=== PATIENT | female | born 1990 | race African-American/Black ===

== ENCOUNTER 2017-05-25 11:35 | Emergency (ER) | payer MEDICAID ==
[2016-02-22 08:24] VITALS: BMI 30.8
[~2017-05-25 11:35] MED LIST: ADIPEX-P37.5 M1 PO; GILDESS FE 1.51 EACH PO; HYDROCODONE-APA1 TAB PO
[2017-05-25 12:26] LABS: BASOPHILS 0.6 % (0-2); EOSINOPHILS 1.9 % (0-7); HEMATOCRIT 38.4 % (36.0-48.0); HEMOGLOBIN 12.4 g/dL (12-16); IMMATURE GRANULOCYTES 0.2 % (0-5); LYMPHOCYTES 30.1 % (15-50); MCH 30.3 pg (26.0-34.0); MCHC 32.3 g/dL (31.0-37.0); MCV 93.9 fL (80.0-100.0); MEAN PLATELET VOLUME 9.9 fL (7.4-10.4); MONOCYTES 11.3 % (2-11); NEUTROPHILS 55.9 % (40-80); PLATELET COUNT 278 10x3/uL (130-400); RBC 4.09 10x6/uL (4.00-5.40); RDW 13.4 % (11.5-14.5); WBC 4.7 10x3/uL (4.8-10.8)
[2017-05-25 12:47] LABS: APPEARANCE CLEAR (CLEAR); BILIRUBIN NEGATIVE (NEGATIVE); COLOR YELLOW (YELLOW); GLUCOSE NEGATIVE (NEGATIVE); KETONE NEGATIVE (NEGATIVE); LEUKOCYTE ESTERASE NEGATIVE (NEGATIVE); NITRITE NEGATIVE (NEGATIVE); PROTEIN NEGATIVE (NEGATIVE); SPECIFIC GRAVITY 1.015 (1.005-1.020)
== END 2017-05-25 14:51 | disposition home or self-care (01) ==
LOC: D.ER 11:35
PROVIDERS: Physician Assistant
DX: O26.891 Other specified pregnancy related conditions, first trimester (principal); Z3A.08 8 weeks gestation of pregnancy; S30.1XXA Contusion of abdominal wall, initial encounter; W07.XXXA Fall from chair, initial encounter; Y93.89 Activity, other specified; Y92.9 Unspecified place or not applicable; R10.9 Unspecified abdominal pain

== ENCOUNTER → 2017-10-08 10:12 | Outpatient (CLI) | payer MEDICAID ==
[2016-02-22 08:24] VITALS: BMI 30.8
[2017-10-08 11:50] LABS: APPEARANCE HAZY (CLEAR); BILIRUBIN NEGATIVE (NEGATIVE); COLOR YELLOW (YELLOW); GLUCOSE NEGATIVE (NEGATIVE); KETONE NEGATIVE (NEGATIVE); NITRITE NEGATIVE (NEGATIVE); PROTEIN NEGATIVE (NEGATIVE); SPECIFIC GRAVITY 1.015 (1.005-1.020)
== END | disposition home or self-care (01) ==
LOC: D.LDO 10:12
PROVIDERS: Obstetrics & Gynecology
DX: O26.892 Other specified pregnancy related conditions, second trimester (principal); Z3A.26 26 weeks gestation of pregnancy

== ENCOUNTER → 2017-12-11 10:25 | Outpatient (CLI) | payer MEDICAID ==
[2016-02-22 08:24] VITALS: BMI 30.8
== END | disposition home or self-care (01) ==
LOC: D.LDO 10:25
DX: O26.893 Other specified pregnancy related conditions, third trimester (principal); Z3A.36 36 weeks gestation of pregnancy

== ENCOUNTER → 2017-12-14 15:19 | Outpatient (CLI) | payer MEDICAID ==
[2016-02-22 08:24] VITALS: BMI 30.8
[2017-12-14 16:39] LABS: APPEARANCE CLEAR (CLEAR); BILIRUBIN NEGATIVE (NEGATIVE); COLOR YELLOW (YELLOW); GLUCOSE NEGATIVE (NEGATIVE); KETONE NEGATIVE (NEGATIVE); NITRITE NEGATIVE (NEGATIVE); PROTEIN NEGATIVE (NEGATIVE); UROBILINOGEN NORMAL (NORMAL)
== END | disposition home or self-care (01) ==
LOC: D.LDO 15:19
PROVIDERS: Obstetrics & Gynecology
DX: O21.9 Vomiting of pregnancy, unspecified (principal); Z3A.36 36 weeks gestation of pregnancy

== ENCOUNTER → 2017-12-16 08:27 | Outpatient (CLI) | payer MEDICAID ==
[2016-02-22 08:24] VITALS: BMI 30.8
[~2017-12-16 08:27] MED LIST changes: +HYDROCODON-ACE1 EAC7 PO; +IBUPROFEN600 MG PO; +NORMODYNE / TR100 MG PO; +PRENATAL COMPLE1 TAB PO
[2017-12-16 09:22] LABS: APPEARANCE CLEAR (CLEAR); BILIRUBIN NEGATIVE (NEGATIVE); COLOR YELLOW (YELLOW); GLUCOSE NEGATIVE (NEGATIVE); KETONE NEGATIVE (NEGATIVE); NITRITE NEGATIVE (NEGATIVE); PROTEIN NEGATIVE (NEGATIVE); SPECIFIC GRAVITY 1.005 (1.005-1.020); UROBILINOGEN NORMAL (NORMAL)
== END | disposition home or self-care (01) ==
LOC: D.LDO 08:27
PROVIDERS: Obstetrics & Gynecology
DX: O26.893 Other specified pregnancy related conditions, third trimester (principal); Z3A.37 37 weeks gestation of pregnancy

== ENCOUNTER 2017-12-24 19:37 | Outpatient (CLI) | payer MEDICAID ==
[2016-02-22 08:24] VITALS: BMI 30.8
[~2017-12-24 19:37] MED LIST changes: -HYDROCODON-ACE1 EAC7 PO; -IBUPROFEN600 MG PO; -NORMODYNE / TR100 MG PO; -PRENATAL COMPLE1 TAB PO
== END 2017-12-24 20:26 ==
LOC: D.LDO 19:37
DX: O26.893 Other specified pregnancy related conditions, third trimester (principal); Z3A.37 37 weeks gestation of pregnancy; M79.652 Pain in left thigh; M79.651 Pain in right thigh

== ENCOUNTER 2017-12-28 15:58 | Inpatient (IN) | payer MEDICAID ==
[~2017-12-28] VITALS: Ht 162.6 cm; Wt 103.4 kg
--- NOTE | ~2017-12-28 | DS ---
PATIENT:GILDA HAMMOND :88 MEDICAL RECORD: [id number] DISCHARGE SUMMARY ADMISSION DATE: 12/28/17 DISCHARGE DATE: 12/31/17 The patient was admitted on 12/28/2017. HOSPITAL COURSE: A 27-year-old at 38 weeks and 3 days, admitted from the office to L&D for elevated blood pressures in the severe range with suspected severe preeclampsia at 38 weeks and 3 days. The patient was noted to be A positive, group B strep negative, and rubella immune. PAST MEDICAL HISTORY: Significant for history of umbilical hernia, history of low-grade NIKKIE, history of a single umbilical artery and the current . The patient denied any past surgical history. The patient denies any allergies. The patient reported no significant family history. SOCIAL HISTORY: Significant for alcohol use; however, not during . On initial exam, blood pressures were noted to be above 165 systolic. The patient was otherwise afebrile with a regular rate and rhythm. PHYSICAL EXAMINATION: LUNGS: Clear. CARDIOVASCULAR: Revealed a regular rate and rhythm. The uterus was appropriately sized and nontender. EXTREMITIES: Lower extremities are free of Homans sign, erythema, or significant swelling. LABS: Revealed a hemoglobin of 10.1 and platelet count of 239. Normal liver enzymes and creatinine. ASSESSMENT AND PLAN: 1. Term intrauterine with gestational hypertension/suspected severe preeclampsia. 2. Single umbilical artery. 3. Umbilical hernia. 4. History of low-grade NIKKIE. Plan for induction of labor upon initial admission, with blood pressure in the severe range and with a category 1 tracing at admission. The patient was started on Pitocin and made rapid progression. Rupture of membranes was performed with clear fluid. The patient progressed to the second stage of labor, where a vacuum-assisted vaginal delivery was performed due to bradycardia. The patient had a second degree laceration that was repaired. Delivery note is as on the chart. The patient did well overnight on day #0, with pressures normalizing. However, during the course of the night, blood pressure still became elevated and labile and the patient was started on magnesium sulfate for seizure prophylaxis. Labetalol 100 mg b.i.d. p.o., was started and on the morning of day #1, the patient was doing well with improving blood pressures on labetalol. Uterus is infraumbilical and nontender. Hemoglobin was found to be stable. On the morning of day #2, blood pressures were stable on labetalol. Uterus was infraumbilical and nontender. Vital signs were otherwise stable and the patient was afebrile. Minimal lochia. The patient was discharged home on day #2 with instructions to DISCHARGE SUMMARY REPORT [id number] GILDA HAMMOND follow up in 3 days for blood pressure monitoring. TRANSINT:[id number] Voice Confirmation ID: [id number] DOCUMENT ID: [id number] HOANG WHITEHEAD MD at 1018 CC: [id number] DICTATION DATE: 01/24/18 0612 TERMITE HELPER: 01/24/18 1414 DIS IN 12/31/17 [id number] [place] [address]
[2017-12-28 17:47] LABS: HEMATOCRIT 31.8 % (36.0-48.0); HEMOGLOBIN 10.1 g/dL (12-16); MCH 29.6 pg (26.0-34.0); MCHC 31.8 g/dL (31.0-37.0); MCV 93.3 fL (80.0-100.0); MEAN PLATELET VOLUME 11.9 fL (7.4-10.4); RBC 3.41 10x6/uL (4.00-5.40); WBC 5.5 10x3/uL (4.8-10.8)
[2017-12-28 17:55] LABS: ALT (SGPT) 16 U/L (10-68); CALC OSMOLALITY 270 mosm/kg (275-300); CALCIUM 8.8 mg/dL (8.5-10.1); CARBON DIOXIDE 23.1 mmol/L (21.0-32.0); CHLORIDE - SERUM 103 mmol/L (98-107); CREATININE - SERUM 0.5 mg/dL (0.6-1.3); GLUCOSE 88 mg/dL (74-106); POTASSIUM - SERUM 3.6 mmol/L (3.5-5.1); SODIUM 137 mmol/L (136-145); UREA NITROGEN 6 mg/dL (7-18); URIC ACID 4.5 mg/dL (2.6-7.2); eGFR NON AFRICAN AMERICAN > 90 mL/min (90-120)
[2017-12-28 18:42] VITALS: BP 130/82; Ht 162.6 cm; Wt 103.4 kg
[2017-12-28] MEDS ORDERED: PRENATAL COMPLE1 TAB PO (18:42)
[2017-12-29 07:54] LABS: HEMATOCRIT 30.9 % (36.0-48.0); HEMOGLOBIN 9.7 g/dL (12-16); MCH 29.1 pg (26.0-34.0); MCHC 31.4 g/dL (31.0-37.0); MCV 92.8 fL (80.0-100.0); MEAN PLATELET VOLUME 11.9 fL (7.4-10.4); RBC 3.33 10x6/uL (4.00-5.40); WBC 6.1 10x3/uL (4.8-10.8)
[2017-12-29 19:19] LABS: HEMATOCRIT 29.4 % (36.0-48.0); HEMOGLOBIN 9.4 g/dL (12-16); MCH 29.3 pg (26.0-34.0); MCV 91.6 fL (80.0-100.0); MEAN PLATELET VOLUME 11.7 fL (7.4-10.4); RBC 3.21 10x6/uL (4.00-5.40); RDW 13.1 % (11.5-14.5)
[2017-12-29 19:21] LABS: WBC 11.1 10x3/uL (4.8-10.8)
[2017-12-30 06:15] LABS: RAPID PLASMA REAGIN Non Reactive (Non Reactive)
[2017-12-30 09:07] LABS: BASOPHILS 0.1 % (0-2); EOSINOPHILS 1.1 % (0-7); HEMATOCRIT 28.3 % (36.0-48.0); IMMATURE GRANULOCYTES 0.4 % (0-5); LYMPHOCYTES 17.9 % (15-50); MCH 29.3 pg (26.0-34.0); MCHC 31.8 g/dL (31.0-37.0); MCV 92.2 fL (80.0-100.0); MEAN PLATELET VOLUME 11.9 fL (7.4-10.4); MONOCYTES 13.4 % (2-11); NEUTROPHILS 67.1 % (40-80); PLATELET COUNT 241 10x3/uL (130-400); RBC 3.07 10x6/uL (4.00-5.40); RDW 13.1 % (11.5-14.5)
[2017-12-30 16:50] VITALS: BP 149/90
[2017-12-30 20:32] VITALS: BP 146/86
[2017-12-30 21:11] VITALS: BP 148/97
[2017-12-31 00:28] VITALS: BP 137/84
[2017-12-31 08:28] VITALS: BP 145/78
[2017-12-31] MEDS ORDERED: HYDROCODON-ACE1 EAC7 PO (08:35)
[2017-12-31] MEDS ORDERED: NORMODYNE / TR100 MG PO (08:35)
[2017-12-31] MEDS ORDERED: IBUPROFEN600 MG PO (08:36)
== END 2017-12-31 13:45 | disposition home or self-care (01) | DRG 775 ==
LOC: D.LDO 15:58 → D.LD 16:53
PROVIDERS: Obstetrics & Gynecology
PROC: 10E0XZZ Delivery of Products of Conception, External Approach (ICD-10-PCS; principal; 2017-12-29)
PROC: 0KQM0ZZ Repair Perineum Muscle, Open Approach (ICD-10-PCS; 2017-12-29)
DX: O13.4 Gestational [pregnancy-induced] hypertension without significant proteinuria, complicating childbirth (principal); Z3A.38 38 weeks gestation of pregnancy; Z37.0 Single live birth; O70.1 Second degree perineal laceration during delivery; Q27.0 Congenital absence and hypoplasia of umbilical artery; K42.9 Umbilical hernia without obstruction or gangrene; O75.89 Other specified complications of labor and delivery

== ENCOUNTER 2018-12-05 11:16 | Emergency (ER) | payer MEDICAID ==
[~2018-12-05] VITALS: Ht 162.6 cm; Wt 83.2 kg
[~2018-12-05 11:16] MED LIST changes: +HYDROCODON-ACE1 EAC7 PO; +IBUPROFEN600 MG PO; +NORMODYNE / TR100 MG PO; +PRENATAL COMPLE1 TAB PO
[2018-12-05 11:19] VITALS: Ht 162.6 cm; Wt 83.2 kg
[2018-12-05] MEDS ORDERED: EFFEXOR37.5 MG PO (11:24)
[2018-12-05 11:39] LABS: APPEARANCE CLEAR (CLEAR); BILIRUBIN NEGATIVE (NEGATIVE); COLOR YELLOW (YELLOW); GLUCOSE NEGATIVE (NEGATIVE); KETONE NEGATIVE (NEGATIVE); NITRITE NEGATIVE (NEGATIVE); PROTEIN NEGATIVE (NEGATIVE); SPECIFIC GRAVITY 1.005 (1.005-1.020); UROBILINOGEN NORMAL (NORMAL)
[2018-12-05 11:43] LABS: HCG URINE NEGATIVE (NEGATIVE)
[2018-12-05 11:49] LABS: BASOPHILS 1.4 % (0-2); HEMATOCRIT 41.3 % (36.0-48.0); HEMOGLOBIN 13.4 g/dL (12-16); MCH 31.4 pg (26.0-34.0); MCHC 32.4 g/dL (31.0-37.0); MCV 96.7 fL (80.0-100.0); MONOCYTES 8.4 % (2-11); NEUTROPHILS 51.2 % (40-80); RBC 4.27 10x6/uL (4.00-5.40); WBC 4.3 10x3/uL (4.8-10.8)
[2018-12-05 11:50] LABS: PLATELET COUNT 333 10x3/uL (130-400)
[2018-12-05 12:04] LABS: ALBUMIN 3.6 g/dL (3.4-5.0); ALKALINE PHOSPHATASE 88 U/L (46-116); ALT (SGPT) 40 U/L (10-68); BILIRUBIN - TOTAL 0.17 mg/dL (0.2-1.3); CALC OSMOLALITY 277 mosm/kg (275-300); CALCIUM 8.7 mg/dL (8.5-10.1); CARBON DIOXIDE 27.4 mmol/L (21.0-32.0); CHLORIDE - SERUM 104 mmol/L (98-107); CREATININE - SERUM 0.8 mg/dL (0.6-1.3); POTASSIUM - SERUM 3.9 mmol/L (3.5-5.1); PROTEIN - SERUM 7.5 g/dL (6.4-8.2); SODIUM 141 mmol/L (136-145); UREA NITROGEN 10 mg/dL (7-18); eGFR NON AFRICAN AMERICAN 90 mL/min (90-120)
[2018-12-05 12:08] LABS: GLUCOSE 68 mg/dL (74-106)
[2018-12-05 14:04] VITALS: BP 115/68
== END 2018-12-05 14:05 | disposition home or self-care (01) ==
LOC: D.ER 11:16
PROVIDERS: Family Medicine
DX: E16.2 Hypoglycemia, unspecified (principal); R11.0 Nausea

== ENCOUNTER 2019-03-16 22:44 | Emergency (ER) | payer SELFPAY ==
[~2019-03-16] VITALS: Ht 162.6 cm; Wt 86.4 kg
[~2019-03-16 22:44] MED LIST changes: +EFFEXOR37.5 MG PO
[2019-03-16 22:51] VITALS: Ht 162.6 cm; Wt 86.4 kg
[2019-03-16 23:11] LABS: BASOPHILS 0.3 % (0-2); EOSINOPHILS 0 % (0-7); HEMATOCRIT 39.3 % (36.0-48.0); HEMOGLOBIN 12.8 g/dL (12-16); IMMATURE GRANULOCYTES 0.3 % (0-5); LYMPHOCYTES 6.6 % (15-50); MCH 30.8 pg (26.0-34.0); MCHC 32.6 g/dL (31.0-37.0); MCV 94.7 fL (80.0-100.0); MEAN PLATELET VOLUME 9.7 fL (7.4-10.4); MONOCYTES 6.9 % (2-11); NEUTROPHILS 85.9 % (40-80); PLATELET COUNT 263 10x3/uL (130-400); RBC 4.15 10x6/uL (4.00-5.40); RDW 12.7 % (11.5-14.5); WBC 3.6 10x3/uL (4.8-10.8)
[2019-03-16 23:15] LABS: APPEARANCE CLEAR (CLEAR); COLOR YELLOW (YELLOW); GLUCOSE NEGATIVE (NEGATIVE); KETONE NEGATIVE (NEGATIVE); NITRITE NEGATIVE (NEGATIVE); PROTEIN NEGATIVE (NEGATIVE); SPECIFIC GRAVITY 1.015 (1.005-1.020)
[2019-03-16 23:16] LABS: BACTERIA NONE SEEN /hpf (NONE SEEN); BILIRUBIN NEGATIVE (NEGATIVE); EPITHELIAL CELLS NSEEN /hpf (0-5); WHITE CELLS - URINE NSEEN /hpf (0-5)
[2019-03-16 23:17] LABS: URIC ACID CRYSTALS 0-5 /hpf (NONE SEEN)
[2019-03-16 23:18] LABS: HCG URINE NEGATIVE (NEGATIVE)
--- NOTE | 2019-03-16 23:18 | NUR ---
DR LIVE NOTIFIED AND REVIEWED PT's BEHAVIOR AND ASSESSMENT RESULTS, PT IS LOW RISK PER DR LIVE, DR LIVE STATED TO GIVE RESOURCES TO PT AT TIME OF DISCHARGE , NO FURTHER ORDERS AT THIS TIME, RESOURCES REVIEWED WITH PT AND SHE VERBALIZED UNDERSTANDING.
[2019-03-16 23:30] LABS: ALBUMIN 3.6 g/dL (3.4-5.0); ALKALINE PHOSPHATASE 92 U/L (46-116); ALT (SGPT) 59 U/L (10-68); BILIRUBIN - TOTAL 0.32 mg/dL (0.2-1.3); CALC OSMOLALITY 277 mosm/kg (275-300); CALCIUM 8.2 mg/dL (8.5-10.1); CARBON DIOXIDE 26.4 mmol/L (21.0-32.0); CHLORIDE - SERUM 103 mmol/L (98-107); CREATININE - SERUM 0.7 mg/dL (0.6-1.3); POTASSIUM - SERUM 3.8 mmol/L (3.5-5.1); PROTEIN - SERUM 7.2 g/dL (6.4-8.2); SODIUM 139 mmol/L (136-145); UREA NITROGEN 11 mg/dL (7-18); eGFR NON AFRICAN AMERICAN > 90 mL/min (90-120)
[2019-03-16 23:32] LABS: GLUCOSE 119 mg/dL (74-106)
[2019-03-16] MEDS ORDERED: VOLTAREN75 MG PO (23:41)
[2019-03-17 00:06] VITALS: BP 138/90
== END 2019-03-17 00:06 | disposition home or self-care (01) ==
LOC: D.ER 22:44
PROVIDERS: Emergency Medicine
DX: N92.0 Excessive and frequent menstruation with regular cycle (principal)

== ENCOUNTER 2019-07-08 12:46 | Emergency (ER) | payer MEDICAID ==
[~2019-07-08] VITALS: Ht 162.6 cm; Wt 84.1 kg
[~2019-07-08 12:46] MED LIST changes: +VOLTAREN75 MG PO
[2019-07-08 12:51] VITALS: Ht 162.6 cm; Wt 84.1 kg
[2019-07-08] MEDS ORDERED: EC-NAPROSYN500 MG PO (13:34)
[2019-07-08] MEDS ORDERED: CYCLOBENZAPRINE10 MG PO (13:34)
[2019-07-08 14:01] VITALS: BP 140/83
== END 2019-07-08 14:01 | disposition home or self-care (01) ==
LOC: D.ER 12:46
DX: S29.012A Strain of muscle and tendon of back wall of thorax, initial encounter (principal); V89.2XXA Person injured in unspecified motor-vehicle accident, traffic, initial encounter

== ENCOUNTER → 2020-05-11 11:40 | Outpatient (CLI) | payer MEDICAID ==
[2019-07-08 12:51] VITALS: BMI 31.8
[~2020-05-11 11:40] MED LIST changes: +CYCLOBENZAPRINE10 MG PO; +EC-NAPROSYN500 MG PO
[2020-05-11 12:41] LABS: BILIRUBIN NEGATIVE (NEGATIVE); GLUCOSE NEGATIVE (NEGATIVE); KETONE NEGATIVE (NEGATIVE); NITRITE NEGATIVE (NEGATIVE); SPECIFIC GRAVITY 1.015 (1.005-1.020); UROBILINOGEN NORMAL (NORMAL)
--- NOTE | 2020-05-11 12:50 | NUR ---
dr. houston notified and reviewed pt's behavior and assessment results. pt is a low risk per dr. houston stated to give resources to pt at time of discharge. no further orders at this time. resources reviewed with pt and she verabalized understanding.
== END | disposition home or self-care (01) ==
LOC: D.LDO 11:40
PROVIDERS: ATTEND Obstetrics & Gynecology
DX: O26.899 Other specified pregnancy related conditions, unspecified trimester (principal); Z3A.00 Weeks of gestation of pregnancy not specified; R10.2 Pelvic and perineal pain

== ENCOUNTER 2020-05-12 16:43 | Outpatient (CLI) | payer MEDICAID ==
[2019-07-08 12:51] VITALS: BMI 31.8
== END 2020-05-12 18:25 | disposition home or self-care (01) ==
LOC: D.LDO 16:43
PROVIDERS: ATTEND Obstetrics & Gynecology
DX: O26.893 Other specified pregnancy related conditions, third trimester (principal); Z3A.35 35 weeks gestation of pregnancy; R10.2 Pelvic and perineal pain

== ENCOUNTER 2020-05-28 00:47 | Inpatient (IN) | payer OTHER ==
[~2020-05-28] VITALS: Ht 162.6 cm; Wt 108.0 kg
[2020-05-28] MEDS ORDERED: BUSPAR5 MG PO (01:22)
[2020-05-28] MEDS ORDERED: PRENAVITE1 TAB PO (01:23)
[2020-05-28 01:24] VITALS: BP 140/84; Ht 162.6 cm; Wt 108.0 kg
[2020-05-28 01:45] LABS: UDS - AMPHET NEGATIVE QUAL (NEGATIVE); UDS - BARB NEGATIVE QUAL (NEGATIVE); UDS - BENZO NEGATIVE QUAL (NEGATIVE); UDS - COCAINE NEGATIVE QUAL (NEGATIVE); UDS - OPIATE NEGATIVE QUAL (NEGATIVE); UDS - PCP NEGATIVE QUAL (NEGATIVE); UDS - THC NEGATIVE QUAL (NEGATIVE)
[2020-05-28 01:57] LABS: GLUCOSE NEGATIVE (NEGATIVE); KETONE NEGATIVE (NEGATIVE); NITRITE NEGATIVE (NEGATIVE); UROBILINOGEN NORMAL (NORMAL)
[2020-05-28 01:58] LABS: BILIRUBIN NEGATIVE (NEGATIVE)
[2020-05-28 05:14] LABS: BASOPHILS 0.3 % (0-2); EOSINOPHILS 1.5 % (0-7); HEMATOCRIT 31.6 % (36.0-48.0); HEMOGLOBIN 9.8 g/dL (12-16); IMMATURE GRANULOCYTES 0.3 % (0-5); LYMPHOCYTES 18.6 % (15-50); MCH 27.5 pg (26.0-34.0); MCV 88.8 fL (80.0-100.0); MEAN PLATELET VOLUME 11.7 fL (7.4-10.4); MONOCYTES 9.5 % (2-11); NEUTROPHILS 69.8 % (40-80); RBC 3.56 10x6/uL (4.00-5.40); RDW 13.7 % (11.5-14.5); WBC 7.3 10x3/uL (4.8-10.8)
[2020-05-28 05:17] LABS: CALC OSMOLALITY 272 mosm/kg (275-300); CALCIUM 8.4 mg/dL (8.5-10.1); CARBON DIOXIDE 24.2 mmol/L (21.0-32.0); CHLORIDE - SERUM 103 mmol/L (98-107); CREATININE - SERUM 0.6 mg/dL (0.6-1.3); GLUCOSE 84 mg/dL (74-106); POTASSIUM - SERUM 3.9 mmol/L (3.5-5.1); SODIUM 138 mmol/L (136-145); UREA NITROGEN 7 mg/dL (7-18); eGFR NON AFRICAN AMERICAN > 90 mL/min (90-120)
[2020-05-28 05:23] LABS: ALBUMIN 2.4 g/dL (3.4-5.0); ALKALINE PHOSPHATASE 164 U/L (30-120); ALT (SGPT) 15 U/L (10-68); BILIRUBIN - DIRECT 0.06 mg/dL (0.00-0.30); BILIRUBIN - INDIRECT 0.16 mg/dL (0.00-1.00); BILIRUBIN - TOTAL 0.22 mg/dL (0.2-1.3); PROTEIN - SERUM 6.7 g/dL (6.4-8.2); URIC ACID 3.7 mg/dL (2.6-7.2)
[2020-05-28 05:29] LABS: PLATELET COUNT 363 10x3/uL (130-400)
--- NOTE | 2020-05-28 16:30 | NUR ---
PT RECEIVED VIA W/C TO ROOM 1220 FROM DEBORAH FRANCISCO FOR CARE ON W.S. PT AAOx3, DENIES PAIN AT THIS TIME. TRANSFERS SELF TO BED, STEADY GAIT. PERIPADS AND PANTIES PROVIDED. PT GIVEN FRESH ICE WATER AND JUICE PER REQUEST. ORIENTED TO NEW ROOM AND CALL LIGHT. PT DENIES FURTHER NEEDS. SRUx2, CL IN REACH.
--- NOTE | 2020-05-28 17:03 | NUR ---
PT CALLS OUT AUTO GLASS TECHNICIAN LIGHT STATING SHE WOULD LIKE TO GO AHEAD AND TAKE TORADOL FOR CRAMPING. THIS RN TO ROOM. PT RATES CRAMPING PAIN 3/10, STATES SHE JUST WANTS TO STAY AHEAD OF IT BEFORE IT GETS BAD. TORADOL ADMIN ORDERED, SEE EMAR FOR DOC. PT SITITNG UP IN BED EATING REGULAR DINNER TRAY. SRUx2, CL IN REACH. WILL CONT TO MONITOR.
--- NOTE | 2020-05-28 19:00 | NUR ---
REPORT GIVEN BY DEBORAH TIRADO
[2020-05-28 19:45] VITALS: BP 101/64
--- NOTE | 2020-05-28 19:45 | NUR ---
INTRODUCED SELF TO PT. FIRST THING PT TELLS ME IS THAT SHE HAS A PUBIC DYSTOCIA. SHE STATES IT HURTS ANAD TYLENOL AND TORADOL DOESN'T TOUCH IT. HEART SOUNDS WNL, LUNGS CLEAR, BS HEARD. HER FUNDUS IS FIRM. SHE STATES HER LOCHIA IS SMALL. PT IS UP AD ARNULFO IN HER ROOM. SHE HAS A BABY GIRL WHO IS IN THE CRIB BY PT BED. PT HAS NO OTHER C/O AT THIS TIME AND DOES NOT NEED ANYTHING. I TOOK HER A FRESH WATER AND ICE FOR A SPRITE.
--- NOTE | 2020-05-28 20:00 | NUR ---
PT IS RESTING QUIETLY IN HER ROOM.
--- NOTE | 2020-05-28 22:15 | NUR ---
PT CALLED ME TO HER ROOM TO ASK IF I HAS ASKED ABOUT PAIN MEDS FOR HER. I SAID NO BUT I WOULD SINCE DR. LEDESMA WAS HERE FOR A DELIVERY. I FOUND HER TO ASK AND SHE STATED SHE WOULD GIVE HER NORCO 5. I WENT BACK TO LET THE PT KNOW. I TOLD HER IT WOULD BE A FEW MINUTES FOR TO PUT IN THE ORDER AND FOR IT TO BE VERIFIED BY PHARMACY. THIS WAS FINE WITH PT. SHE SEEMED TO UNDERSTAND.
--- NOTE | 2020-05-28 22:45 | NUR ---
TOOK PT NORCO 5 AND TORADOL 10 PO. PT TOOK BOTH PILLS. SHE HAS BEEN EDUCATED ON THE DRUG INTERACTIONS OF TORADOL.
--- NOTE | 2020-05-29 00:05 | NUR ---
ASKED PT HOW THE MEDICATION WORKED ON HER PAIN. SHE STATED JUST OK.
--- NOTE | 2020-05-29 02:30 | NUR ---
PT IS STILL AWAKE IN HER ROOM WITH NO C/O OR NEEDS.
--- NOTE | 2020-05-29 05:27 | NUR ---
PT ASKED FOR PAIN MEDS. TORADOL 10 GIVEN PO. PT HAS BEEN SLEEPING SOUNDLY. SHE STATES HER PAIN IS A 7-8.
--- NOTE | 2020-05-29 06:06 | NUR ---
PT IS RESTING QUIETLY IN HER ROOM. NO NEW C/O OR NEEDS
--- NOTE | 2020-05-29 06:45 | NUR ---
SEVN 5 GIVEN. PT STATES THAT THE TORADOL HELPED HER PAIN WHEN I GAVE IT EARLIER. SHE RATES HER PAIN NOW A 4-5. TRYING TO WAKE BABY UP TO FEED.
[2020-05-29 07:03] LABS: HEMOGLOBIN 8.5 g/dL (12-16); MCH 26.7 pg (26.0-34.0); MCHC 30.4 g/dL (31.0-37.0); MCV 88.1 fL (80.0-100.0); MEAN PLATELET VOLUME 10.8 fL (7.4-10.4); RBC 3.18 10x6/uL (4.00-5.40); RDW 13.7 % (11.5-14.5); WBC 7.1 10x3/uL (4.8-10.8)
--- NOTE | 2020-05-29 07:15 | NUR ---
REPORT RECEIVED FROM Hi BORDEN RN.
[2020-05-29 07:16] LABS: RAPID PLASMA REAGIN Non Reactive (Non Reactive)
--- NOTE | 2020-05-29 08:45 | NUR ---
TO ROOM FOR ASSESSMENT. PT SITTING UP FEEDING BABY. ASSESSMENT COMPLETED. SEE FLOWSHEET. NO NEEDS OR CONCERNS VOICED AT THIS TIME.
[2020-05-29 09:00] VITALS: BP 132/82
--- NOTE | 2020-05-29 09:41 | NUR ---
PT UP TO SHOWER.
--- NOTE | 2020-05-29 10:20 | NUR ---
PT AMBULATING IN HALLWAY WITH INFANT IN CRIB. NO NEEDS VOICED AT THIS TIME.
--- NOTE | 2020-05-29 11:51 | NUR ---
ROOM CHECK. PT SITTING UP IN BED WITH BABY IN ARMS. REQUESTS TORADOL FOR PAIN.
--- NOTE | 2020-05-29 14:05 | NUR ---
ROUNDS MADE. PT SLEEPING.
--- NOTE | 2020-05-29 17:15 | NUR ---
ROUNDS MADE. PT SITTING UP EATING DINNER, WATCHING TV. AT BEDSIDE IN CRIB. NO NEEDS VOICED AT THIS TIME.
--- NOTE | 2020-05-29 18:43 | NUR ---
ROUNDS MADE. TORADOL ADMINISTERED. JUICE AND WATER GIVEN. NO OTHER NEEDS OR CONCERNS VOICED AT THIS TIME.
--- NOTE | 2020-05-29 19:45 | NUR ---
PT WATCHING TV, INFORMED PT THAT I WILL BE BACK IN SHORTLY TO DO ASSESSMENT, PT VERBALIZES UNDERSTANDING, DENIES NEEDS OR PAIN AT THIS TIME
[2020-05-29 20:15] VITALS: BP 167/100
--- NOTE | 2020-05-29 20:15 | NUR ---
ASSESSMENT PER FLOW SHEET, VS OBTAINED, IV IN LEFT HAND INTACT WITH NO REDNESS OR EDEMA, FF, ML, U/2, LITE BLEEDING WITH NO CLOTS, PT REPORTS FLATUS, NO BM TODAY, AND VOIDING WITH NO DIFFICULTY, PT DENIES PAIN, INFORMED PT THAT I WILL BE CALLING DR WHITEHEAD BECAUSE BP IS ELEVATED, PT VERBALIZES UNDERSTANDING, STATES "I DON'T KNOW WHY IT WOULD BE HIGH, IT HASN'T BEEN HIGH WITH THIS , IT WAS WITH MY LAST ", PT REQUESTED AND SERVED PEPPER IRWIN, DENIES FURTHER NEEDS
--- NOTE | 2020-05-29 20:38 | NUR ---
DR WHITEHEAD PAGED
--- NOTE | 2020-05-29 20:40 | NUR ---
DR WHITEHEAD CALLS UNIT, REPORT OF BP'S, RECEIVED ORDERS TO RETAKE BP ABOUT 45 MINUTES FROM LAST BP, AND CALL
--- NOTE | 2020-05-29 20:47 | NUR ---
PT SIDE SEAM MACHINE OPERATOR LIGHT, PT INQUIRES ABOUT THE TORADOL, ASKED IF TORADOL COULD CAUSE HBP, INFORMED PT THAT I WAS NOT SURE BUT I WILL LOOK IT UP
[2020-05-29 21:10] VITALS: BP 168/98
--- NOTE | 2020-05-29 21:10 | NUR ---
PT JUST GOT OFF OF THE PHONE WITH HER MOTHER, PT REPORTS THAT HER MOTHER LOOKED IT UP AND TOLD HER NOT TO TAKE THE TORADOL ANYMORE BECAUSE IT CAN CAUSE HBP, I INFORMED PT THAT I ALSO LOOKED IT UP AND THAT I WILL DEFINITELY MENTION IT TO DR WHITEHEAD, BP OBTAINED, PT STATES "I REALLY THINK IT WAS FROM THAT TORADOL, I USUALLY DON'T LIKE TAKING ANYTHING NEW BECAUSE I JUST HATE TAKING PILLS ANYWAY", INFORMED PT THAT I WILL BE CALLING DR WHITEHEAD AND I WILL LET HER KNOW WHAT HE SAYS
--- NOTE | 2020-05-29 21:24 | NUR ---
DR WHITEHEAD PAGED
--- NOTE | 2020-05-29 21:25 | NUR ---
DR WHITEHEAD CALLS UNIT, REPORT OF BP AND PT'S CONCERN ABOUT THE TORADOL CAUSING HER BP TO INCREASE, ORDERS TO D/C TORADOL, MAY HAVE MOTRIN 600MG PO Q6H PRN, LABETOLOL 100MG PO TID, AND CALL IF SYSTOLIC >165 OR DIASTOLIC >100, ORDERS READ BACK AND VERIFIED
--- NOTE | 2020-05-29 21:43 | NUR ---
INFANT TO ROOM VIA OPEN CRIB CART PER CARINA VASQUEZ, RN, THIS RN IN ROOM INFORMED PT OF DR HERNANDEZ ORDERS, PT CONCERNED ABOUT TAKING THE BP MED, STATES "CAN I JUST WAIT AND SEE IF MY BP WILL GO DOWN SINCE I'M NOT GOING TO TAKE THAT TORADOL ANYMORE", THIS RN AND CARNIA VASQUEZ, DEBORAH EXPLAINED TO PT ABOUT NOT TAKING BP MED, PT VERBALIZES UNDERSTANDING, ADM LABETOLOL PO PER MD ORDERS, SEE EMAR, PT REQUESTED AND SERVED SNACK, DENIES FURTHER NEEDS
--- NOTE | 2020-05-29 22:31 | NUR ---
PT JUST HUNG UP HER CELL PHONE, SLIGHTLY TEARY EYED, WHEN ASKED IF SHE WAS OK, PT STATES "I'M FINE", DENIES NEEDS OR PAIN, IN OPEN CRIB CART AT BEDSIDE
[2020-05-30 00:22] VITALS: BP 139/91
--- NOTE | 2020-05-30 00:22 | NUR ---
PT AWAKE, WATCHING TV AND RESTING, VS OBTAINED, PT DENIES NEEDS OR PAIN AT THIS TIME, SLEEPING IN OPEN CRIB CART AT BEDSIDE
--- NOTE | 2020-05-30 02:19 | NUR ---
PT RESTING WITH EYES CLOSED, RESP QUIET, NO DISTRESS NOTED, LEFT UNDISTURBED AT THIS TIME, SLEEPIN IN OPEN CRIV CART AT BEDSIDE
[2020-05-30 04:23] VITALS: BP 149/95
--- NOTE | 2020-05-30 04:23 | NUR ---
PT RESTING WITH EYES CLOSED, AROUSES TO SOFT VERBAL STIMULATION, VS OBTAINED, PT RATES PELVIC PAIN 2/10, DENIES NEEDS AT THIS TIME, INFANT SLEEPING IN OPEN CRIB CART AT BEDSIDE
--- NOTE | 2020-05-30 06:31 | NUR ---
PT AWAKE, SITTING UP IN BED, DENIES NEEDS OR PAIN AT THIS TIME, INFANT SLEEPING IN OPEN CRIB CART AT BEDSIDE
--- NOTE | 2020-05-30 07:40 | NUR ---
ASSESSMENT COMPLETE. PATIENT RATES PAIN 0/10. IV SL LEFT HAND, SITE WNL. PATIENT DENIES NEEDS AT THIS TIME. BABY IN CRIB SLEEPING. SIDE RAILS UP X 2. CALL LIGHT IN REACH.
--- NOTE | 2020-05-30 08:25 | NUR ---
ROOM CHECK. PATIENT SITTING UP IN BED SNUGGLING BABY. DENIES NEEDS AT THIS TIME. CALL LIGHT IN REACH, SIDE RAILS UP X2.
[2020-05-30 08:59] VITALS: BP 170/107
--- NOTE | 2020-05-30 09:28 | NUR ---
PATIENTS BLOOD PRESSURE 170/107. LABETOL 100MG GIVEN PER ORDERS. DR ANDRADE CALLED WITH ELEVATED BLOOD PRESSURE. ORDERS FOR CLONODINE 0.1MG PO ONCE AND CHECK BLOOD PRESSURE IN ONE HOUR. ORDER PLACED. INTERACTION WARNING ISSUED. SPOKE WITH BIPIN IN PHARMACY--OK TO OVERRIDE FOR ONE TIME DOSE. PATIENT UPDATED ON MEDICATION CHANGE, SHE VERBALIZED UNDERSTANDING AND AGREEMENT.
[2020-05-30 09:41] VITALS: BP 166/103
--- NOTE | 2020-05-30 09:45 | NUR ---
BLOOD PRESSURE 166/103 PULSE 86. CLONODINE EDUCATION PROVIDED AND MEDICATION GIVEN. PATIENT TEARFUL AFRAID THIS WILL SET HER BACK AND SHE WOULD NOT BE ABLE TO GO HOME TONIGHT. ADVISED PATIENT OF THE POC FOR HER BLOOD PRESSURE AND TO TRY TO REST MUCH POSSIBLE. SHE VERBALIZED UNDERSTANDING AND AGREEMENT. WILL RECHECK BLOOD PRESSURE IN ONE HOUR.
--- NOTE | 2020-05-30 10:16 | NUR ---
PATIENT COLLEGE OF EDUCATION DEAN LIGHT-REQUESTING TO TAKE SHOWER. TOWELS AND SOAP PROVIDED. PATIENT STATES SHE THINKS TAKING A SHOWER WILL HELP HER ANXIETY AND REDUCE HER BLOOD PRESSURE. PATIENT EDUCATED COLLEGE OF EDUCATION DEAN LIGHT IN BATHROOM.
[2020-05-30 10:38] VITALS: BP 137/84
--- NOTE | 2020-05-30 10:40 | NUR ---
ROOM CHECK. BLOOD PRESSURE 137/84, HEART RATE 92. PATIENT STATES SHE FEELS MORE RELAXED AFTER SHOWER. WILL CONTINUE TO MONITOR BLOOD PRESSURE. CALL LIGHT IN REACH, SIDE RAILS UP X2.
--- NOTE | 2020-05-30 11:57 | NUR ---
ROOM CHECK. PATIENT RESTING IN BED. DENIES NEEDS. CALL LIGHT IN REACH, SIDE RAILS UP X 2.
--- NOTE | 2020-05-30 13:45 | NUR ---
ROOM CHECK. ORDERS TO D/C HOME TODAY. IV D/C'D WITH TIP INTACT. PATIENT DENIES NEEDS AT THIS TIME. BABY IN CRIB ASLEEP. PATIENT UP WALKING AROUND IN ROOM.
--- NOTE | 2020-05-30 14:00 | NUR ---
ROOM CHECK. PATIENT DENIES NEEDS AT THIS TIME. PATIENT SITTING UP IN BED SNUGGLING WITH BABY. CALL LIGHT IN REACH. SIDE RAILS UP X2.
[2020-05-30 15:00] VITALS: BP 147/87
--- NOTE | 2020-05-30 15:03 | NUR ---
D/C EDUCATION GIVEN TO PATIENT. EDUCATION PROVIDED ON BLOOD PRESSURE MONITORING AT HOME AND S/S TO CALL MD WITH OR PRESENT TO ER. PATIENT VERBALIZED UNDERSTANDING AND AGREEMENT. VSS BP 147/87 PULSE 97. PATIENT STATES SHE DOES NOT FEEL SHE NEEDS HER 1500 LABETOL.
--- NOTE | 2020-05-30 15:05 | NUR ---
PATIENT REAL ESTATE FINANCIAL ANALYST LIGHT. RATES PAIN 5/10 AND REQUEST MOTRIN. MOTRIN GIVEN PER ORDER. PATIENT DENIES ANY FURTHER NEEDS. BABY ASLEEP IN CRIB. PATIENT UP WALKING AROUND IN ROOM.
--- NOTE | 2020-05-30 16:15 | NUR ---
PATIENT AND BABY DISCHARGED HOME VIA WHEELCHAIR TO PRIVATE CAR DRIVEN BY FOB. PATIENT AND FOB DENY AND QUESTIONS/CONCERNS AT THIS TIME.
== END 2020-05-30 16:15 | disposition home or self-care (01) | DRG 807 ==
LOC: D.WS 00:47 → D.LD 00:55 → OBSVTIME 02:19 → D.WS 02:20 → D.LD 02:20 → D.WS 16:30
PROVIDERS: ADMIT Obstetrics & Gynecology; ATTEND Obstetrics & Gynecology
PROC: 10D07Z6 Extraction of Products of Conception, Vacuum, Via Natural or Artificial Opening (ICD-10-PCS; principal; 2020-05-28)
DX: O66.0 Obstructed labor due to shoulder dystocia (principal); Z37.0 Single live birth; Z3A.37 37 weeks gestation of pregnancy; O36.8330 Maternal care for abnormalities of the fetal heart rate or rhythm, third trimester, not applicable or unspecified; O71.82 Other specified trauma to perineum and vulva

== ENCOUNTER 2020-06-02 12:06 | Emergency (ER) | payer OTHER ==
[~2020-06-02 12:06] MED LIST changes: +BUSPAR5 MG PO; +PRENAVITE1 TAB PO
[2020-06-02 12:17] VITALS: Ht 162.6 cm
[2020-06-02 15:01] VITALS: BP 174/104
== END 2020-06-02 15:10 | disposition home or self-care (01) ==
LOC: D.ER 12:06
DX: R60.0 Localized edema (principal); K21.9 Gastro-esophageal reflux disease without esophagitis